=== PATIENT | female | born 1960 | race Caucasian/White ===

== ENCOUNTER → 2024-02-07 17:43 | Outpatient (CLI) | payer OTHER, SELFPAY ==
--- NOTE | 2024-02-07 17:47 | DI.RAD.S_ITS ---
PROCEDURE: XR SHOULDER LT MIN 2V INDICATIONS: L SHOULDER INJURY TECHNIQUE: 3 views of the shoulder were acquired. COMPARISON: None. FINDINGS: Bones: No fractures or dislocations. No suspicious bony lesions. Visualized ribs appear intact. Age-appropriate bony degenerative changes are seen. Soft tissues: No suspicious soft tissue calcifications. IMPRESSION: Shoulder plain film study within normal limits for age, without an acute abnormality seen. If it would be helpful for clinical management decision making, please consider a dedicated, scheduled shoulder MRI for further evaluation (assuming that there is no contraindication). Dictated by: Berlin Maldonado M.D. on 02/07/2024 at 17:11 Approved by: Berlin Maldonado M.D. on 02/07/2024 at 17:12
== END ==
LOC: RAD 17:46
PROVIDERS: Referring Provider Physician Assistant Surgical; Visit Provider Physician Assistant Surgical
DX: M25.512 Pain in left shoulder (principal); X58.XXXA Exposure to other specified factors, initial encounter
CPT/HCPCS: 73030